=== PATIENT | male | born 1955 | race Two or more races ===

== ENCOUNTER 2021-08-21 11:42 | Emergency (ER) | payer SELFPAY ==
[~2021-08-21] VITALS: Ht 167.6 cm; Wt 74.8 kg
[2021-08-21 11:49] VITALS: BP 142/88
== END 2021-08-21 11:55 | disposition left against medical advice (07) ==
LOC: ER 11:42 → EDBD 11:42 → ER 11:55
DX: R53.1 Weakness (principal); Z53.21 Procedure and treatment not carried out due to patient leaving prior to being seen by health care provider